=== PATIENT | female | born 1970 | race Caucasian/White ===

== ENCOUNTER 2024-02-21 00:14 | Emergency (ER) | payer BC, SELFPAY ==
[2024-02-21 00:20] VITALS: BP 136/76
--- NOTE | 2024-02-21 00:56 | ED.GENMED ---
History of Present Illness
General
Chief Complaint: Breathing Problem
Source: patient
Time Seen by Provider: 02/21/24 00:40
Nursing documentation reviewed up to this point in time: agreed with
History of Present Illness
History of Present Illness:
Pleasant 53-year-old female presents with acute asthma exacerbation. She is in town visiting from [place] and was exposed to a new cat. She is allergic to some cats and realized that she forgot her inhaler so she came into the emergency
department. Denies any other symptoms. Reports no other medical problems.
Vital signs are stable. Patient not hypoxic
Nursing note reviewed. I agree with nursing documentation up to this point in time.
Home Meds and allergies reviewed.
NUMBER AND COMPLEXITY OF PROBLEMS ADDRESSED AT THE ENCOUNTER
� Chronic conditions affecting care: Asthma
� Acute Exacerbation and/or Progression of Chronic Illness: Asthma
� Differential Diagnosis includes: Acute asthma exacerbation
AMOUNT AND/OR COMPLEXITY OF DATA TO BE REVIEWED AND ANALYZED
I performed an independent evaluation of the following and my interpretation is:
EKG: EKG shows normal sinus rhythm rate of 73 with normal intervals, normal axis. No evidence of acute ischemia present. When compared with previous EKG dated May 27, 2008, there is similar morphology noted.
Pulse Ox: Not Hypoxic on room air
Drive In Theater Attendant: Sinus Rhythm
CT:
X-rays:
Ultrasound:
Laboratory Studies:
Other:
Review of other/old records: No previous x-rays
Clinical information was obtained by an independent historian:
Prescriptions/Medications Considered but not given:
Further testing considered but not performed:
RISK OF COMPLICATIONS AND/OR MORBIDITY OR MORTALITY OF PATIENT MANAGEMENT
Social determinants of health affecting care: Good Social Support
Discussion with other providers:
Escalation of care including admission/observation vs risk of discharge considered: After being observed in the emergency department, patient is stable for discharge.
CRITICAL CARE NOTE: Not applicable
Total Time (exclusive of procedures):
Update:
Review of Systems
Review of Systems
Allergies reviewed?: Yes
All Other Systems: ROS reviewed and negative except as documented in HPI and ROS
Constitutional: Reports no symptoms
EENT: Reports no symptoms
Respiratory: Reports trouble breathing
Cardiac: Reports no symptoms
ABD/GI: Reports no symptoms
: Reports no symptoms
Musculoskeletal: Reports no symptoms
Skin: Reports no symptoms
Neurological: Reports no symptoms
Endocrine: Reports no symptoms
Hematologic/Lymphatic: Reports no symptoms
Psychiatric: Reports no symptoms
Phy Exam
General Physical Exam
General Presentation: well appearing and no apparent distress
General Skin: warm and dry
General Habitus: normal
General Mental: alert
General Hydration: appears well hydrated
ENT Exam
ENT Exam: EOMI, pharynx normal, neck supple and normocephalic
Eye Exam
Eye Exam: PERRL, cornea clear and conjunctiva normal
Cardiovascular Exam
Cardiovascular Exam: regular rate/rhythm, no edema, no murmur and normal peripheral pulses
Pulmonary Exam
Pulmonary Exam: no respiratory distress and generalized wheezing
Gastrointestinal Exam
Gastrointestinal Exam: normal bowel sounds, non tender, soft, no organomegaly, no pulsatile mass and non distended
Neurological Exam
Neurological Exam: alert, oriented x3, no motor deficits and speech normal
Musculoskeletal Exam
Musculoskeletal Exam: full ROM and no edema
Skin Exam
Skin Exam: normal color, warm/dry, no rash and no petechia
Psychiatric Exam
Psychiatric Exam: normal mood/affect
Scores
Heart Failure Risk
Heart Failure Risk Score: Not Applicable
Course
Orders/Labs/Results
Orders:
Orders
02/21/24 00:40
Dexamethasone Sod Phosphate [Decadron] 10 mg IV NOW STA
Ipratropium/Albuterol Sulfate [Duoneb] 3 ml INH R NOW ONE
02/21/24 00:56
Dexamethasone Pf [Decadron] 10 mg PO NOW STA
02/21/24 00:57
Electrocardiogram (*1) Urgent
Reason for Study: Shortness of Breath
EKG- Treatment ONCE
02/21/24 01:29
Albuterol [ProAIR HFA INHALER] 2 puff INH R NOW STA
Vital Signs
Initial and Last Documented VS:
Initial Vital Signs
Temp Pulse Resp BP Pulse Ox
98.0 F 87 20 136/76 98
02/21/24 00:20 02/21/24 00:20 02/21/24 00:20 02/21/24 00:20 02/21/24 00:20
Last Documented Vital Signs
Temp Pulse Resp BP Pulse Ox
98.0 F 79 16 109/52 100
02/21/24 00:20 02/21/24 01:47 02/21/24 01:47 02/21/24 01:47 02/21/24 01:47
*Pulse Oximetry
Patient hypoxic: no
*Critical Care Note
Total Time (30-74mins, 75-104mins- exclusive of procedures): Not Applicable
Update Note
Update Note:
02/21/2024 0148 AM: Patient feeling much better. Will be discharged home
ED Attending Note
-
Portions of this chart may have been created with voice recognition software.� Occasional wrong word or��sound alike� substitutions may have occurred due to the inherent limitations of voice recognition software.
Discharge Plan
Departure
Patient Disposition: Home (Routine Discharge)
Date of Disposition: 02/21/24
Time of Disposition: 01:49
Patient with high blood pressure during this ER visit?: No
Condition: Good
Discharge Problem:
Asthma exacerbation
Instructions: Asthma, Adult (DC), Shortness of Breath (Dyspnea) (DC)
Prescriptions:
New
prednisone 50 mg Tablet
50 mg PO DAILY Qty: 5 0RF
Referrals:
[facility] [Provider Group]
[facility] [Outside]
[facility] [Outside]
Activity Restrictions/Additional Instructions:
It was a pleasure meeting you and taking part in your care. We hope for your continued healing and wellness.
Please read discharge instructions in their entirety. However, they are for general education and may not describe your exact diagnosis at discharge. Information on your ER visit and medical conditions were discussed with you along with appropriate
follow up information...
If indicated, please take your medications as instructed and indicated on discharge paperwork.
Please schedule a follow up appointment as directed. Call to schedule an appointment
Please return to the emergency department with ANY change in, persisting, or worsening of symptoms. If any of your symptoms do not improve, or persist, or become more severe within 6-12 hours, please return to the emergency department for further
care.
Please return to the emergency department if you develop a headache, neck pain/stiffness, fever greater than 100.4F, chest pain, shortness of breath, persistent nausea, vomiting, slurred speech, difficulty walking, numbness/tingling, weakness, signs
of infection or any other symptoms that are worrisome to you.
If you have any questions or concerns please do not hesitate to call the Hospital at or E-mail me directly at [email or web address]
Interventions
Interventions:
*Risk Screen - Suicide Last Done: 02/21/24 00:20
*General Assessment Last Done: 02/21/24 01:03
*Neglect/Abuse Screening Last Done: 02/21/24 00:20
ED- Fall Risk Assessment Last Done: 02/21/24 00:20
*ED COVID-19 Vaccine History Last Done: 02/21/24 00:20
*Nursing Disposition Last Done: 02/21/24 02:10
ED- Cardiac Assessment Last Done: 02/21/24 01:03
ED- Pulmonary Assessment Last Done: 02/21/24 01:03
Discharge Date and Time
Discharge Date/Time: 02/21/24 02:11
Print Language: [email or web address]
[2024-02-21] MEDS: DUONEB 3 ML INH (00:57)
[2024-02-21] MEDS: DECADRON 10 MG PO (00:57)
[2024-02-21 01:47] VITALS: BP 109/52
[2024-02-21] MEDS: ProAIR HFA INHALER 2 PUFF INH (01:48)
== END 2024-02-21 02:11 | disposition home or self-care (01) ==
LOC: EMR 00:14
PROVIDERS: EMERGENCY PHYSICIAN Student in an Organized Health Care Education/Training Program
DX: J45.901 Unspecified asthma with (acute) exacerbation (principal)
CPT/HCPCS: 99284; 94640; 96374; 93005